=== PATIENT | female | born 1945 | race African-American/Black ===

== ENCOUNTER 2019-04-01 07:42 | Inpatient (IN) ==
[2019-04-01 08:14] LABS: ABG Base Excess -3.7 MMOL/L (-2.5-2.5); ABG HCO3 21.6 MMOL/L (20-26); ABG Oxygen Saturation 99.2 % (95-100); ABG PO2 221.7 MM HG (80-95); ABG TCO2 22.8 MMOL/L (23-27)
[2019-04-01 08:20] LABS: Basophils % 0.4 % (0.0-0.8); Eosinophils # 0.1 10*3/uL (0.0-0.87); Eosinophils % 0.7 % (0.00-10.9); Hematocrit 31.8 VOL% (35.7-47.0); Hemoglobin 9.7 GM/DL (12.0-16.0); Immature Granulocytes Absolute 0.07 #; Lymphocytes # 0.8 10*3/uL (1.4-4.0); Mean Corpuscular HGB Conc 30.5 GM/DL (32-36); Mean Corpuscular Volume 95.2 FL (87-102); Mean Platelet Volume 10.2 FL (9.6-12.0); Monocytes % 1.4 % (1.7-12.7); Neutrophils % 85.5 % (38.7-73.9); Platelet Count 200 T/CUMM (130-400); Red Blood Count 3.34 MC/CUMM (3.8-5.5); Red Cell Distribution Width 12.6 % (9.3-17.3); White Blood Count 7.2 T/CUMM (4-12)
[2019-04-01 08:33] LABS: INR 1.2; PT Patient Result 12.6 SECS (9.6-12.2); Partial Thromboplastin Time 34.3 SECS (20.8-36.0)
[2019-04-01 08:44] LABS: Alanine Aminotransferase 41 U/L (13-56); Albumin 2.6 G/DL (3.4-5.0); Alkaline Phosphatase 72 U/L (45-117); Aspartate Amino Transferase 140 U/L (0-37); Bilirubin,Total < 0.39 MG/DL (0.2-1.0); Blood Urea Nitrogen 18 MG/DL (7-18); Calcium 8.8 MG/DL (8.5-10.1); Estimated Glom Filtration Rate 55 ML/MIN; Glucose 198 MG/DL (74-106); Osmolality,Calculated 284.5 MOS/KG (273-304); Total Protein 9.2 G/DL (6.4-8.3)
[2019-04-01] MEDS ORDERED: ALBUTEROL 2.5 MG/3 ML NEB RESP TX PRN (09:54)
[2019-04-01] MEDS ORDERED: ONDANSETRON 4 MG/2 ML VIAL IV PRN (09:54)
[2019-04-01] MEDS ORDERED: MORPHINE 4 MG/1 ML VIAL IV PRN (09:54)
[2019-04-01] MEDS ORDERED: NOREPINEPHRINE 8 MG in SODIUM CHLORIDE 0.9% 242 ML IV PRN (09:54)
[2019-04-01] MEDS ORDERED: ENOXAPARIN 40 MG/0.4 ML SYRINGE SUBCUT SCH (10:00)
[2019-04-01 11:48] VITALS: BP 152/94
[2019-04-01] MEDS: LACTATED RINGERS 1,000 ML IV SCH ×2 (12:45→19:20)
[2019-04-01] MEDS ORDERED: METOPROLOL TARTRATE 5 MG/5 ML VIAL IV PRN (14:43)
[2019-04-01] MEDS ORDERED: ACETAMINOPHEN 325 MG TABLET PO PRN (14:44)
[2019-04-01] MEDS ORDERED: hydrALAZINE 20 MG/1 ML VIAL IV PRN (14:52)
[2019-04-01] MEDS ORDERED: POTASSIUM CHLORIDE RIDER 10 MEQ in PREMIX 1 EACH IV PRN (14:54)
[2019-04-01] MEDS ORDERED: SODIUM CHLORIDE 0.9% 1,000 ML IV ONE (16:24)
[2019-04-01] MEDS: POLYVINYL ALCOHOL 1.4% OPH SOLN 15 ML BOTTLE BOTH EYES SCH ×2 (17:54→20:41)
[2019-04-01] MEDS: PANTOPRAZOLE 40 MG VIAL IV SCH ×2 (17:55→20:44)
[2019-04-01] MEDS ORDERED: SODIUM CHLOR 0.9% KCL 40 MEQ 40 MEQ/1,000 ML BAG IV SCH (18:00)
[2019-04-01] MEDS ORDERED: hydrALAZINE 20 MG/1 ML VIAL IV SCH (18:00)
[2019-04-01] MEDS ORDERED: AMIODARONE 150 MG/3 ML VIAL ONE (20:21)
[2019-04-01] MEDS ORDERED: AMIODARONE 450 MG/9 ML VIAL IV ONE (20:21)
[2019-04-01] MEDS ORDERED: AMIODARONE INJ 150 MG in DEXTROSE 5% 100 ML IV ONE (20:30)
[2019-04-01] MEDS ORDERED: AMIODARONE INJ 450 MG in DEXTROSE 5% 241 ML IV SCH (20:40)
[2019-04-01] MEDS ORDERED: AMINO ACIDS PROTEIN HYDROLYS PO SCH (21:00)
[2019-04-02 03:04] LABS: ABG HCO3 17.9 MMOL/L (20-26); ABG Oxygen Saturation 94.9 % (95-100); ABG PCO2 24.2 MM HG (35-48); ABG PH 7.416 (7.35-7.45); ABG PO2 72.9 MM HG (80-95); ABG TCO2 14.5 MMOL/L (23-27); Allen Test Positive; Pt O2 Delivery Device Ventilator
[2019-04-02] MEDS ORDERED: PANTOPRAZOLE 40 MG TABLET PO SCH (09:00)
== END 2019-04-02 03:15 | disposition expired | DRG 296 ==
LOC: EDUNIT# → EDBD → N.ED 07:42 → SUPCPDRO 08:22 → N.EDINP 08:22 → N.ICU 09:25
PROVIDERS: ADMIT Family Medicine; ATTEND Family Medicine